=== PATIENT | male | born 1955 | race Native Hawaiian/Other Pacific Islander ===

== ENCOUNTER 2022-12-13 13:12 | Outpatient (CLI) | payer OTHER, MEDICARE | END 2022-12-13 21:47 | disposition home or self-care (01) | LOC: RAD 13:12 | PROVIDERS: ATTEND Family Medicine | DX: M54.12 Radiculopathy, cervical region (principal) ==

== ENCOUNTER 2022-12-21 08:53 | Outpatient (CLI) | payer OTHER, MEDICARE | END 2022-12-21 19:22 | disposition home or self-care (01) | LOC: US 08:53 | PROVIDERS: ATTEND Nurse Practitioner Family | DX: R59.0 Localized enlarged lymph nodes (principal); M54.12 Radiculopathy, cervical region ==